=== PATIENT | female | born 1980 | race Caucasian/White ===

== ENCOUNTER 2020-09-08 16:54 | Emergency (ER) | payer BC, SELFPAY ==
[2020-09-08 17:22] VITALS: BP 141/92; PULSE 88; RESP 18; TEMP 36.9; O2SAT 99
--- NOTE | 2020-09-08 17:34 | ED.URI ---
HPI - URI/Sore Throat General Chief Complaint: Upper Respiratory Infection Stated Complaint: Shortness of breathe,cough,wheezing History of Present Illness HPI Narrative: This is a 39-year-old female presented to urgent care with complaints of uncontrolled productive coughing, wheezing, subjective fever and fatigue for approximately 1-1/2 weeks. Patient notes that she had her Covid vaccine Ovidio & Ovidio back in June. Patient has received Motrin at home for heart relieves. She described her secretions as a greenish color and approximately 1 month ago she was diagnosed and treated for bronchitis. She does continue to complain of shortness of breath and was given a albuterol inhaler she does use that when she is short of breath. The patient denies, CP, palpitation, extremity numbness, lightheadedness, dizziness, constipation, diarrhea, chills, or fever. MD elicited complaint: fever and cough Related Data Allergies Allergy/AdvReac Type Severity Reaction Status Date / Time codeine Allergy Intermediate Hives Verified 09/08/20 17:20 Review of Systems Review of Systems: Narrative: A 14 organ system Review of Systems was performed and pertinent positives included in the HPI, otherwise remaining ROS is negative. All systems reviewed & are unremarkable except as noted in HPI and below PMFSH Family History Family History (Updated 09/08/20 @ 17:38 by KIARA OwenP-C) Other Family history non-contributory Exam Narrative: Exam Narrative: GENERAL: This is a well-nourished, well-developed patient, in no apparent distress. HEAD: normocephalic, atraumatic. EYES: PERRL. Sclera clear/white. Vision is grossly intact. EARS: External ears normal, auditory canals clear and without drainage, TMs normal without perforation. Hearing grossly intact. NOSE: External nose normal with no obvious nasal discharge, nares without redness, no rhinorrhea. THROAT: Mucous membranes moist, posterior pharynx edema with the erythematous NECK: Neck supple, non-tender without lymphadenopathy, masses or thyromegaly. CARDIOVASCULAR: Regular rate and rhythm without murmurs, gallops, or rubs. RESPIRATORY: Diminished lung sounds throughout GASTROINTESTINAL: Abdomen soft, non-tender, nondistended. Bowel sounds are active. No hepato-splenomegaly, or palpable masses. No guarding. SKIN: warm, intact with no suspicious lesions or rash, good texture and turgor. NEURO: awake, alert, and oriented to person, place and time. There were no obvious focal neurologic abnormalities. Steady gait EXTREMITIES: Normal range of motion. No edema. No calf tenderness. Negative Homans sign bilaterally. BACK: Nontender without deformity or crepitance. No flank tenderness. Course Course Emergency Course: Patient will go home with amoxicillin 500 mg twice daily x7 days guaifenesin Tessalon Perles and prednisone Vital Signs Vital signs: Vital Signs Temperature 98.4 F 09/08/20 17:22 Pulse Rate 88 09/08/20 17:22 Respiratory Rate 18 09/08/20 17:22 Blood Pressure 141/92 H 09/08/20 17:22 Pulse Oximetry 99 09/08/20 17:22 Temperature 98.4 F 09/08/20 17:22 Pulse Rate 88 09/08/20 17:22 Respiratory Rate 18 09/08/20 17:22 Blood Pressure 141/92 H 09/08/20 17:22 Pulse Oximetry 99 09/08/20 17:22 MDM - URI/Sore Throat Differential Diagnosis Differential diagnosis: Likely upper respiratory infection, bronchitis and pharyngitis Discharge Plan Discharge Clinical Impression: Pharyngitis Qualifiers: Pharyngitis/tonsillitis etiology: unspecified etiology Qualified Code(s): J02.9 - Acute pharyngitis, unspecified Patient Disposition: Home, Self-Care Condition: Stable Instructions: Antibiotic Form, Pharyngitis (ED) Additional Instructions: Increase fluids especially juices and water [id number] cough and cold medicine of your choice for your symptoms Prescription cough medicine as directed--caution drowsiness and no driving or alcohol Cough t
== END 2020-09-08 18:00 | disposition home or self-care (01) ==
PROVIDERS: Emergency Provider Nurse Practitioner
DX: J02.9 Acute pharyngitis, unspecified (principal)
CPT/HCPCS: 99203; G0463

== ENCOUNTER 2020-12-27 18:33 | Emergency (ER) | payer BC, SELFPAY ==
[2020-12-27 18:40] VITALS: BP 142/97; PULSE 99; RESP 18; TEMP 36.6; O2SAT 100
--- NOTE | 2020-12-27 19:34 | ED.URI ---
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 Patient states she has a couple day history of right ear discomfort, preceded by 2-week history of nonproductive cough. No fever, loss of taste/smell, CP, wheezing, S OB. Symptoms are mild; triage vital signs are remarkable only for systolic BP in the low 140s Related Data Home Medications Medication Instructions Recorded Confirmed levonorgestrel [Mirena] 20 mcg INTRAUTERINE USEASDIRECTD 12/27/20 12/27/20 Allergies Allergy/AdvReac Type Severity Reaction Status Date / Time codeine Allergy Intermediate Hives Verified 12/27/20 18:42 Review of Systems Review of Systems: The patient has been informed that they may have pre-hypertension or Hypertension based on a BP reading in the department. I recommend that the patient call the primary care provider listed on their discharge instructions or a physician of their choice this week to arrange follow up for further evaluation of possible pre-hypertension or Hypertension General/Constitutional: No weight loss,fever Eyes: N0: Redness,discharge Ears/Nose/Throat: No: Epistaxis,ear discharge Respiratory: Denies: Hemoptysis Gastrointestinal: No Vomiting, Bleeding-rectal Skin: No Lumps, eruption Neurologic: No Focal Weakness,Sz Hematologic: Denies: Petechiae/Purpura Psychiatric: No: Suicida ideationl All Other Systems: Reviewed and Negative [facility] Family History Family History (Updated 09/08/20 @ 17:38 by SHAUN Owen) Other Family history non-contributory Social History Social History Gender identity (if verbalized by the patient): Female Sexual Orientation (if Verbalized by the Patient): Straight or Heterosexual Comments At time of signature, agree with nursing past medical, surgical, social and family history. There is no relevant family history pertinent to the presenting complaint Exam Narrative: General Appearance: Obese/well nourished EYE: PERRLA, Conjunctiva clear Ears: Auditory canal normal, TM normal Nose: Rhinorrhea, Mucousal erythema Mouth/Throat: MM moist, Uvula midline, Pharyngeal erythema Neck: Supple, No adenopathy Respiratory: No respiratory distress, distant BS are equal, Clear to auscultation Cardiovascular: RRR, No JVD Musculoskeletal: Non tender, Normal strength Skin: Warm, Dry Neurological: A&O x3, CN II-XII intact Psychiatric: Normal mood, Normal affect Course Vital Signs Vital signs: Vital Signs Temperature 97.9 F 12/27/20 18:40 Pulse Rate 99 12/27/20 18:40 Respiratory Rate 18 12/27/20 18:40 Blood Pressure 142/97 H 12/27/20 18:40 Pulse Oximetry 100 12/27/20 18:40 Temperature 97.9 F 12/27/20 18:40 Pulse Rate 99 12/27/20 18:40 Respiratory Rate 18 12/27/20 18:40 Blood Pressure 142/97 H 12/27/20 18:40 Pulse Oximetry 100 12/27/20 18:40 MDM - URI/Sore Throat Lab Data Labs: Lab Results 12/27/20 Range/Units 19:06 POC SARS CoV-2 Ag Negative (Negative) Strep Screen Presumptive Negative *(Reference Range: Negative)* Discharge Plan Discharge Clinical Impression: Cough Otitis media Qualifiers: Otitis media type: unspecified Chronicity: acute Qualified Code(s): H66.90 - Otitis media, unspecified, unspecified ear Patient Disposition: Home, Self-Care Condition: Stable Instructions: Ear Infection (ED), Acute Bronchitis (ED) Additional Instructions: You may continue your prior inhaler Prescriptions: New benzonatate 100 mg capsule 100 mg PO TID PRN (Reason: cough) Qty: 20 RF: 2 cefuroxime axetil 500 mg tablet 500 mg PO Q1
== END 2020-12-27 19:43 | disposition home or self-care (01) ==
PROVIDERS: Emergency Provider Emergency Medicine
DX: R05.9 Cough, unspecified (principal); H66.90 Otitis media, unspecified, unspecified ear; Z20.822 Contact with and (suspected) exposure to COVID-19
CPT/HCPCS: 87081; 87426; 87880; 99213; C9803; G0463

== ENCOUNTER 2022-02-04 11:49 | Emergency (ER) | payer BC, SELFPAY ==
[2022-02-04 12:11] VITALS: BP 152/102; PULSE 98; RESP 18; TEMP 36.1; O2SAT 100
--- NOTE | 2022-02-04 12:33 | ED.URI ---
HPI - URI/Sore Throat General Chief Complaint: Upper Respiratory Infection Stated Complaint: cough,congestion,wheezing Time Seen by Provider: 02/04/22 12:33 Source: patient and RN notes reviewed Mode of arrival: ambulatory Limitations: no limitations History of Present Illness HPI Narrative: 42-year-old female presenting for complaint of sore throat, sinus congestion and cough worsening over the last 4 days. She denies fever, body aches, shortness of breath, nausea, vomiting or diarrhea. She is taking DayQuil for symptoms. 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 MD elicited complaint: cough Related Data Home Medications Medication Instructions Recorded Confirmed levonorgestrel 20 mcg/24 hours (8 20 mcg intrauterine USEASDIRECTD 12/27/20 02/04/22 yrs) 52 mg intrauterine device (Mirena) Allergies Allergy/AdvReac Type Severity Reaction Status Date / Time codeine Allergy Intermediate Hives Verified 02/04/22 12:10 Review of Systems Review of Systems: ROS per HPI PEND[facility] S[facility] TO [facility] Family History Family History Other Family history non-contributory Social History Social History Gender identity (if verbalized by the patient): Female Sexual Orientation (if Verbalized by the Patient): Straight or Heterosexual Exam Narrative: GENERAL: Ill-appearing, nontoxic EYES: PERRLA, conjunctivae clear ENT: Mucous membranes moist. TMs pearly meyer with dull light reflex bilaterally; no tragal tenderness. Oropharynx erythematous without lesions or exudate CHEST: Clear to auscultation, breath sounds equal. wheezing a/w nonproductive cough HEART: Regular rate and rhythm. No murmur heard. SKIN: Warm, dry, no rash. NEURO: Alert and oriented x3. PSYCH: Normal mood and affect Course Course Emergency Course: Patient is aware of diagnosis, understands and agrees to treatment plan. Anticipatory guidance given. Patient agrees to follow-up as directed and is aware of reasons to seek care at the emergency department. Portions of this record may have been created with voice recognition software Level of Care: Express Care Visit Vital Signs Vital signs: Vital Signs Temperature 96.9 F L 02/04/22 12:11 Pulse Rate 98 02/04/22 12:11 Respiratory Rate 18 02/04/22 12:11 Blood Pressure 152/102 H 02/04/22 12:11 Pulse Oximetry 100 02/04/22 12:11 Oxygen Delivery Room Air 02/04/22 12:11 Temperature 96.9 F L 02/04/22 12:11 Pulse Rate 98 02/04/22 12:11 Respiratory Rate 18 02/04/22 12:11 Blood Pressure 152/102 H 02/04/22 12:11 Pulse Oximetry 100 02/04/22 12:11 Oxygen Delivery Room Air 02/04/22 12:11 reviewed MDM - URI/Sore Throat MDM Narrative Medical decision making narrative: Flu negative. Advised supportive measures and signs/symptoms to go to the ER. Pt is appropriate for outpt treatment and f/u. Differential Diagnosis Differential diagnosis: Likely upper respiratory infection, sinusitis, viral infection, bronchitis and influenza Lab Data Labs: Influenza A Screen Negative Reference Range: Negative Influenza B Screen Negative Reference Range: Negative Discharge Plan Discharge Clinical Impression: Upper respiratory infection Patient Disposition: Home, Self-Care Condition: Stable Instructions: Upper Respiratory Infection (ED) Additional Instructions: Recommend Flonase spray and Zyrtec (or Claritin/Almaz) over the counter Cough syrup may cause drowsiness; avoid driving or take it at night time. Tylenol 1000mg every 8 hours as needed for pain Symptomatic treatment includes: rest, fluids, and increase humidity of the air at home. Follow up with your primary care provider in 1 week. Go to the ER for
== END 2022-02-04 12:48 | disposition home or self-care (01) ==
PROVIDERS: Emergency Provider Nurse Practitioner Family
DX: J06.9 Acute upper respiratory infection, unspecified (principal)
CPT/HCPCS: 87804; 99213; G0463

== ENCOUNTER 2022-04-25 11:47 | Emergency (ER) | payer BC, SELFPAY ==
--- NOTE | 2022-04-25 11:55 | ED.GENADULT ---
HPI - General Adult General Chief complaint: Unspecified Stated complaint: Elevated Blood Pressure Time Seen by Provider: 04/25/22 11:55 Source: patient Mode of arrival: ambulatory Limitations: no limitations History of Present Illness HPI narrative: 42 yo F presents stating she was at her [employer] appt for a yearly exam and was told her blood pressure was elevated. Pt is asymptomatic. Was told BP 160s systolic. Does not have a PCP so came here to be seen. Deneis CP and SOB. All systems reviewed and negative except as noted above. Related Data Home Medications Medication Instructions Recorded Confirmed levonorgestrel 21 mcg/24 hours (8 20 mcg intrauterine USEASDIRECTD 12/27/20 02/04/22 yrs) 52 mg intrauterine device (Mirena) Allergies Allergy/AdvReac Type Severity Reaction Status Date / Time codeine Allergy Intermediate Hives Verified 02/04/22 12:10 Review of Systems Review of Systems: CONSTITUTIONAL: Denies fever, chills, or sweats. EYES: Denies visual changes, redness, or discharge. ENT: Denies rhinorrhea, congestion, sore throat, or otalgia. CARDIOVASCULAR: Denies chest pain, palpitations, or edema. RESPIRATORY: Denies cough or dyspnea. GASTROINTESTINAL: Denies abdominal pain, nausea, vomiting, or diarrhea. GENITOURINARY: Denies dysuria or hematuria. SKIN: Denies rash or itching. MUSCULOSKELETAL: Denies back pain, joint pain, or myalgia. NEUROLOGIC: Denies headache, numbness, or weakness. PSYCHIATRIC: Denies anxiety or depression. All other systems reviewed are negative, except as documented in HPI. PMFSH Family History Family History Other Family history non-contributory Social History Social History Gender identity (if verbalized by the patient): Female Sexual Orientation (if Verbalized by the Patient): Straight or Heterosexual Comments At time of signature, agree with nursing past medical, surgical, social and family history. There is no relevant family history pertinent to the presenting complaint. Exam Narrative: GENERAL: This is a well-nourished, well-developed patient, in no apparent distress. HEAD: normocephalic, atraumatic. EYES: PERRL. Sclera clear/white. Vision is grossly intact. EARS: External ears normal NOSE: External nose normal NECK: Neck supple, non-tender without lymphadenopathy, masses or thyromegaly. CARDIOVASCULAR: Regular rate and rhythm without murmurs, gallops, or rubs. RESPIRATORY: Clear to auscultation. Breath sounds equal bilaterally. No wheezes, rales, or rhonchi. SKIN: warm, Dry, intact with no suspicious lesions or rash, good texture and turgor. NEURO: awake, alert, and oriented to person, place and time. There were no obvious focal neurologic abnormalities. EXTREMITIES: No joint tenderness, effusion, or edema noted. Course Course Level of Care: Express Care Visit Vital Signs Vital signs: reviewed. BP manually checked by this [employer] and 144/92 Medical Decision Making MDM Narrative Medical decision making narrative: BP 144/92 today. asymptomatic. pt given [facility] number to establish primary care physician. Patient is aware of diagnosis, understands and agrees to treatment plan. Anticipatory guidance given. Patient agrees to follow-up as directed and is aware of reasons to seek care at the emergency department. Portions of this record may have been created with voice recognition software Discharge Plan Discharge Clinical Impression: Elevated blood pressure reading Patient Disposition: Home, Self-Care Condition: Stable Instructions: How to Take a Blood Pressure Reading (ED), Hypertension (ED) Additional Instructions: Your blood pressure today was 144/92. Follow up with a primary care physician at next available appointment. Call the [facility] number and discuss primary care options with them that will take y
[2022-04-25 11:58] VITALS: BP 143/97; PULSE 87; RESP 20; TEMP 36.5; O2SAT 100
== END 2022-04-25 12:13 | disposition home or self-care (01) ==
PROVIDERS: Emergency Provider Nurse Practitioner Family
DX: R03.0 Elevated blood-pressure reading, without diagnosis of hypertension (principal)
CPT/HCPCS: 99211; G0463

== ENCOUNTER 2022-10-13 08:27 | Emergency (ER) | payer MEDICAID, SELFPAY ==
--- NOTE | ~2022-10-13 | XR_ITS ---
XR chest 2V DATE: 10/13/2022 08:57 INDICATION: Productive cough, shortness of breath for 2 weeks TECHNIQUE: 2 views COMPARISON: None FINDINGS: Approximately 9 mm nodular density is suggested overlying the left upper lobe laterally. There is infiltrate and/or atelectasis in both lower lung zones. Cardiomegaly is suggested. No pleural effusion or pneumothorax is detected. IMPRESSION: Possible 9 mm left upper lobe pulmonary nodule Bilateral lower lung infiltrate and/atelectasis Suggestion of cardiomegaly Reviewed, dictated and finalized at location A.
--- NOTE | 2022-10-13 08:36 | ED.GENADULT ---
HPI - General Adult General Chief complaint: Upper Respiratory Infection Stated complaint: Wheezing,Headache Time Seen by Provider: 10/13/22 08:36 Source: patient Mode of arrival: ambulatory Limitations: no limitations History of Present Illness HPI narrative: 42-year-old female patient presents to the [facility] with complaints of cough, wheeze and some shortness of breath. Patient states she seen her primary provider about 2 weeks ago was given a Z-Pranav, albuterol inhaler and a steroid burst. Patient states she is still having wheezing, coughing and shortness of breath and feels like it might be getting worse. Patient states she has had a headache for the past 3 days. Denies fevers, body aches or chills. Denies any nausea, vomiting or diarrhea. Denies any history of asthma or bronchitis in the past. Related Data Home Medications Medication Instructions Recorded Confirmed levonorgestrel 21 mcg/24 hours (8 20 mcg intrauterine USEASDIRECTD 12/27/20 10/13/22 yrs) 52 mg intrauterine device (Mirena) albuterol sulfate 90 mcg/actuation 2 puff inhalation PRN PRN 10/13/22 10/13/22 aerosol inhaler Shortness Of Breath Or Wheezing Allergies Allergy/AdvReac Type Severity Reaction Status Date / Time codeine AdvReac Mild Hives Verified 10/13/22 08:28 Review of Systems Review of Systems: CONSTITUTIONAL: Denies fever, chills, or sweats. EYES: Denies visual changes, redness, or discharge. ENT: Denies rhinorrhea, congestion, sore throat, or otalgia. CARDIOVASCULAR: Denies chest pain, palpitations, or edema. RESPIRATORY: Positive cough , positive dyspnea. GASTROINTESTINAL: Denies abdominal pain, nausea, vomiting, or diarrhea. GENITOURINARY: Denies dysuria or hematuria. SKIN: Denies rash or itching. MUSCULOSKELETAL: Denies back pain, joint pain, or myalgia. NEUROLOGIC: positive headache, denies numbness, or weakness. PSYCHIATRIC: Denies anxiety or depression. [facility] Past Medical History Medical History (Updated 10/13/22 @ 09:34 by COSTA Mai) Hypertension Family History Family History Other Family history non-contributory Social History Social History Gender identity (if verbalized by the patient): Female Sexual Orientation (if Verbalized by the Patient): Straight or Heterosexual Comments At the time of my signature I agree with nursing past medical history, surgical, social, and family history. There is no relevant family history pertinent to the presenting complaint. Exam Narrative: GENERAL: Well-appearing, well-nourished, and in no acute distress. HEAD: Normocephalic, atraumatic. EYES: PERRLA and EOMI. ENT: Nares with erythema and edema noted bilaterally, no rhinorrhea or epistaxis. Mucous membranes moist. posterior pharynx no erythema, tonsillar enlargement, exudates or lesions present. NECK: Supple. No lymphadenopathy CHEST: Patient has expiratory wheezing on auscultation to all 4 lobes but more present to the bilateral upper lobes. Audible wheezing noted during exam. no tripoding noted. HEART: Regular rate and rhythm. No murmur heard. Normal peripheral pulses. ABDOMEN: Soft, nontender, nondistended, normal active bowel sounds. EXTREMITIES: Normal range of motion. No edema. SKIN: Warm, dry, no rash. NEURO: No focal deficits. Alert and oriented x3. Course Course Level of Care: Express Care Visit Reevaluation(s) Reevaluation #1: Re-evaluated patient and notified her that the x-ray does so show some bilateral infiltrates which could indicate some pneumonia. We will go ahead and treat her today with a prednisone taper as well as of a different type of antibiotics to hopefully treat the pneumonia. Discussed with patient that it the x-ray is also showing enlarged heart and a nodule will to the lung. Discussed with patient highly recommend she call her primary doctor joaquín
[2022-10-13 08:39] VITALS: BP 138/97; PULSE 88; RESP 18; TEMP 36.1; O2SAT 100
[2022-10-13] MEDS: IPRATROPIUM BR 0.02% INH SOLN 0.5 MG/2.5 ML VIAL INHALATION (09:04)
[2022-10-13] MEDS: ALBUTEROL SULFATE NEB 2.5 MG/3 ML INH INHALATION (09:05)
[2022-10-13 09:06] VITALS: PULSE 80; RESP 18; O2SAT 100
--- NOTE | 2022-10-13 09:14 | ECG_ITS ---
Measurements Intervals [facility] Rate: 76 P: 48 OK: 156 QRS: 4 QRSD: 110 T: -79 QT: 381 QTc: 430 Interpretive Statements SINUS RHYTHM MODERATE T-WAVE ABNORMALITY, CONSIDER LATERAL ISCHEMIA [-0.1+ mV T WAVE IN I/aVL/V5/V6] NO PREVIOUS ECG AVAILABLE FOR COMPARISON Electronically Signed On 10-13-2022 11:15:14 CDT by Aung Vega MD
[2022-10-13 09:31] VITALS: PULSE 88; RESP 20; O2SAT 100
== END 2022-10-13 09:37 | disposition home or self-care (01) ==
PROVIDERS: Emergency Provider Nurse Practitioner Family; PCP Family Medicine
DX: J18.9 Pneumonia, unspecified organism (principal); I51.7 Cardiomegaly; Z20.822 Contact with and (suspected) exposure to COVID-19; I10 Essential (primary) hypertension
CPT/HCPCS: 71046; 87426; 93005; 94640; 99213; C9803; G0463

== ENCOUNTER 2022-11-18 18:43 | Emergency (ER) | payer BC, SELFPAY ==
--- NOTE | ~2022-11-18 | XR_ITS ---
EXAMINATION: XR chest 2V Exam Date/Time: 11/18/2022 19:15 CDT HISTORY: COUGH X SEVERAL MONTHS SOB Comparison: 10/13/2022. RESULT: Lines, tubes, and devices: None. Lungs and pleura: Clear. Stable, likely calcified left upper lung nodule. Cardiomediastinal silhouette: Stable. Other: No acute osseous or upper abdominal finding. IMPRESSION: No acute cardiopulmonary process. Stable, likely benign calcified left upper lung nodule, recommend comparison to outside studies if av ailable. If none available, recommend outpatient low-dose noncontrast CT of the chest. Reviewed, dictated and finalized at location [facility]. IMPRESSION: No acute cardiopulmonary process. Stable, likely benign calcified left upper lung nodule, recommend comparison to outside studies if available. If none available, recommend outpatient low-dose noncontrast CT of the chest.
--- NOTE | 2022-11-18 18:49 | ED.URI ---
HPI - URI/Sore Throat General Chief Complaint: Upper Respiratory Infection Stated Complaint: cough,congestion Time Seen by Provider: 11/18/22 18:49 Source: patient Mode of arrival: ambulatory Limitations: no limitations History of Present Illness HPI Narrative: Leonila is a 42-year-old female patient presenting to the clinic today with complaints of cough, congestion, and shortness of breath x4-5 months. She reports she was seen in the clinic and had EKG and chest x-ray done on 10/13/22. She was dx with cardiomegly at that time and was hypertensive at that time. Was given prescription for azithromycin, albuterol inhaler, and steroid burst 2 weeks prior to being seen in the clinic on October 13. She since has seen a structures mechanic and a stubber. She is awaiting for her CT report on her lungs. States she is playing phone tag with the stubber. Has cough and congestion without any mucus production. States she is somewhat short of breath. SpO2 is 100% on room air. She is able to speak in full sentences. MD elicited complaint: sore throat and nasal congestion Related Data Home Medications Medication Instructions Recorded Confirmed levonorgestrel 21 mcg/24 hours (8 20 mcg intrauterine USEASDIRECTD 12/27/20 11/18/22 yrs) 52 mg intrauterine device (Mirena) albuterol sulfate 90 mcg/actuation 2 puff inhalation PRN PRN 10/13/22 11/18/22 aerosol inhaler Shortness Of Breath Or Wheezing amlodipine 5 mg tablet 5 mg PO DAILY 11/18/22 11/18/22 furosemide 20 mg tablet 20 mg PO DAILY 11/18/22 11/18/22 losartan 100 mg tablet 100 mg PO DAILY 11/18/22 11/18/22 Allergies Allergy/AdvReac Type Severity Reaction Status Date / Time codeine AdvReac Mild Hives Verified 11/18/22 18:49 Review of Systems Review of Systems: Pertinent positives per HPI. Patient denies any fever, chills, rash, headache, visual changes, dizziness, shortness of breath, chest pain, palpitations, nausea, vomiting, diarrhea, constipation, abdominal pain, or any urinary issues. PMFSH Past Medical History Medical History Hypertension Family History Family History Other Family history non-contributory Social History Social History Gender identity (if verbalized by the patient): Female Sexual Orientation (if Verbalized by the Patient): Straight or Heterosexual Comments At the time of my signature, I reviewed and agree with the nursing past medical, surgical, social, and family history. There is no relevant family history pertinent to the patient complaint. Exam Narrative: General: Well-developed, obese, in no apparent distress Head: Normocephalic, atraumatic Eyes: Pupils equally round and reactive to light bilaterally, EOM intact, sclera and conjunctive clear, no discharge, lids normal Ears: TMs intact and clear, ear canals clear, no drainage, grossly hearing normal. Nose: Nares patent, no discharge, no inflammation, no sinus tenderness. Mouth: Oral pharynx without lesions or masses, good dentition, MMM. Neck: Supple, trachea midline, no enlargement of anterior or posterior cervical nodes, no thyroid masses or goiter palpable. Cardio: Regular rate and rhythm, s1 and s2 normal, no murmur appreciated. Resp: Diminished breath sounds otherwise clear, no rhonchi, rales, wheezing or rubs Course Course Emergency Course: Portions of this record may have been created with voice recognition software. Level of Care: Express Care Visit Vital Signs Vital signs: Vital signs reviewed MDM - URI/Sore Throat MDM Narrative Medical decision making narrative: At the time of visit patient is resting comfortably on the exam table. X-rays negative for any sign of acute cardiopulmonary process. Hand-held neb treatment was given with no change in respiratory status. Krystal
[2022-11-18 18:51] VITALS: BP 135/88; PULSE 98; RESP 18; TEMP 36.5; O2SAT 100
[2022-11-18 18:55] VITALS: PULSE 98; RESP 20; O2SAT 100
[2022-11-18] MEDS: ALBUTEROL SULFATE NEB 2.5 MG/3 ML INH INHALATION (19:15)
[2022-11-18] MEDS: IPRATROPIUM BR 0.02% INH SOLN 0.5 MG/2.5 ML VIAL INHALATION (19:16)
== END 2022-11-18 19:50 | disposition home or self-care (01) ==
PROVIDERS: Emergency Provider Nurse Practitioner Family; PCP Family Medicine
DX: R05.1 Acute cough (principal); I10 Essential (primary) hypertension; Z79.899 Other long term (current) drug therapy
CPT/HCPCS: 71046; 94640; 99213; G0463

== ENCOUNTER 2022-12-25 17:28 | Emergency (ER) | payer BC, SELFPAY ==
[2022-12-25 17:42] VITALS: BP 150/85; PULSE 95; RESP 18; TEMP 36.8; O2SAT 98
--- NOTE | 2022-12-25 17:57 | ED.URI ---
HPI - URI/Sore Throat General Chief Complaint: Upper Respiratory Infection Stated Complaint: sorethroat,cough Time Seen by Provider: 12/25/22 17:58 Source: patient, RN notes reviewed and old records reviewed Mode of arrival: ambulatory Limitations: no limitations History of Present Illness HPI Narrative: 42-year-old female presents to the [facility] with complaints of worsening sore throat, cough and wheezing as well as fatigue for 5 days. Patient states that she felt fevers today, did not take her temperature. States she has had the symptoms intermittently for the last several months. Has been on prednisone either prescribed at urgent care or by primary care provider on 81, 827 and again 11 28. A Z-Pranav was prescribed on 09/30, and . Had a similar complaint when she was last seen here on November 18, since seen here for similar on October 13. States that she did follow-up with her primary care provider in regards to the lung nodule months ago. 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 Patient in no acute distress, no wheezing noted on exam Offered a chest x-ray, strep test, patient declined Discussed risks of prescribing another steroid to include diabetes, kidney injury. Discussed antibiotics are not indicated at this time. Patient states ?I know that a ready. ? Patient reports the lung nodule that was seen on x-ray was ?nothing. ? according to her primary care provider and grain i farmworker. Onset (ago): month(s) Related Data Home Medications Medication Instructions Recorded Confirmed levonorgestrel 21 mcg/24 hours (8 20 mcg intrauterine USEASDIRECTD 12/27/20 12/25/22 yrs) 52 mg intrauterine device (Mirena) albuterol sulfate 90 mcg/actuation 2 puff inhalation PRN PRN 10/13/22 12/25/22 aerosol inhaler Shortness Of Breath Or Wheezing amlodipine 5 mg tablet 5 mg PO DAILY 11/18/22 12/25/22 furosemide 20 mg tablet 20 mg PO DAILY 11/18/22 12/25/22 losartan 100 mg tablet 100 mg PO DAILY 11/18/22 12/25/22 tiotropium bromide 1.25 1.25 mcg inhalation DIRECTED 12/25/22 12/25/22 mcg/actuation mist for inhalation (Spiriva Respimat) Allergies Allergy/AdvReac Type Severity Reaction Status Date / Time codeine AdvReac Mild Hives Verified 11/18/22 18:49 Review of Systems Review of Systems: All systems reviewed & are unremarkable except as noted in HPI and below Constitutional: Constitutional: Reports as per HPI, Reports no additional constitutional complaints and Reports fatigue Eyes: Eyes: Reports no additional eye complaints ENT: Reports as per HPI and Reports sore throat Cardiovascular: Cardiovascular: Reports no additional cardiovascular complaints, Denies chest pain and Denies dyspnea Respiratory: Respiratory: Denies chest congestion, Reports cough, Denies dyspnea and Reports wheezing Gastrointestinal: Gastrointestinal: Reports no additional gastrointestinal complaints, Denies abdominal pain, Denies nausea and Denies vomiting Musculoskeletal: Musculoskeletal: Reports no additional musculoskeletal complaints Integumentary/Breasts: Skin/Breast: Reports system reviewed and no additional complaints, except as docu Neurologic: Reports system reviewed and no additional complaints, except as documented Psychiatric: Psychiatric: Reports no additional psychiatric complaints Allergic/Immunologic: Allergic/Immunologic: Reports no additional allergic/immunologic complaints [facility], [facility] Past Medical History Medical History Hypertension Family History Family History Other Family history non-contributory Social History Social History Gender identity (if verba
== END 2022-12-25 18:16 | disposition home or self-care (01) ==
PROVIDERS: Emergency Provider Nurse Practitioner; PCP Family Medicine
DX: R05.1 Acute cough (principal); I10 Essential (primary) hypertension
CPT/HCPCS: 99211; G0463

== ENCOUNTER 2023-10-22 14:12 | Emergency (ER) | payer BC, SELFPAY ==
[2023-10-22 14:23] VITALS: BP 149/86; PULSE 85; RESP 16; TEMP 36.3; O2SAT 97
--- NOTE | 2023-10-22 14:44 | ED.NAVMDI ---
HPI - Nausea/Vomiting/Diarrhea General Chief complaint: Nausea/Vomiting/Diarrhea Stated complaint: nausea, vomiting, dizziness Time Seen by Provider: 10/22/23 14:44 Source: patient Mode of arrival: ambulatory Limitations: no limitations History of Present Illness HPI Narrative: 43-year-old female presents with complaint of dizziness, nausea, fatigue starting around 10:00 a.m. today. Patient states she was fine when she woke up this morning. Has not had breakfast or lunch. Reports decreased appetite. No URI symptoms. Denies chest pain and shortness of breath. Dizziness is worse when standing. Denies headache. Was driving home when symptoms started. Stopped over on side of road and had her come and pick her up. Ambulatory with steady gait. patient's blood pressure elevated today. Patient not compliant with her medications. All systems reviewed and negative except as noted above. Related Data Home Medications Medication Instructions Recorded Confirmed levonorgestrel 21 mcg/24 hr (up to 20 mcg intrauterine USEASDIRECTD 12/27/20 12/25/22 8 years) 52 mg intrauterine device (Mirena) albuterol sulfate 90 mcg/actuation 2 puff inhalation PRN Shortness Of 10/13/22 12/25/22 aerosol inhaler Breath Or Wheezing Allergies Allergy/AdvReac Type Severity Reaction Status Date / Time codeine Allergy Mild Hives Verified 10/22/23 14:29 Review of Systems Review of Systems: CONSTITUTIONAL: Denies fever, chills, or sweats. Reports fatigue. EYES: Denies visual changes, redness, or discharge. ENT: Denies rhinorrhea, congestion, sore throat, or otalgia. CARDIOVASCULAR: Denies chest pain, palpitations, or edema. RESPIRATORY: Denies cough or dyspnea. GASTROINTESTINAL: Denies abdominal pain . Reports nausea, vomiting. Denies diarrhea. GENITOURINARY: Denies dysuria or hematuria. SKIN: Denies rash or itching. MUSCULOSKELETAL: Denies back pain, joint pain, or myalgia. NEUROLOGIC: Denies headache, numbness, or weakness. Reports dizziness. PSYCHIATRIC: Denies anxiety or depression. All other systems reviewed are negative, except as documented in HPI. [facility] Past Medical History Medical History Hypertension Family History Family History Other Family history non-contributory Social History Social History Gender identity (if verbalized by the patient): Female Sexual Orientation (if Verbalized by the Patient): Straight or Heterosexual Comments At time of signature, agree with nursing past medical, surgical, social and family history. There is no relevant family history pertinent to the presenting complaint. Exam Narrative: GENERAL: This is a well-nourished, well-developed patient, in no apparent distress. HEAD: normocephalic, atraumatic. EYES: PERRL. Sclera clear/white. Vision is grossly intact. Extraocular motions intact EARS: External ears normal, auditory canals clear and without drainage, TMs normal without perforation. Hearing grossly intact. NOSE: External nose normal with no obvious nasal discharge, nares without redness, no rhinorrhea. THROAT: Mucous membranes moist, posterior pharynx clear. NECK: Neck supple, non-tender without lymphadenopathy, masses or thyromegaly. CARDIOVASCULAR: Regular rate and rhythm without murmurs, gallops, or rubs. RESPIRATORY: Clear to auscultation. Breath sounds equal bilaterally. No wheezes, rales, or rhonchi. SKIN: warm, Dry, intact with no suspicious lesions or rash, good texture and turgor. NEURO: awake, alert, and oriented to person, place and time. There were no obvious focal neurologic abnormalities. EXTREMITIES: No joint tenderness, effusion, or edema noted. No calf tenderness. Negative Homans sign bilaterally. BACK: Nontender without deformity. No CVA tenderness. Course Course Level of C
--- NOTE | 2023-10-22 14:52 | ECG_ITS ---
Test Date: 2023-10-22 15:03:09 Measurements Intervals [place] Rate: 78 P: 48 MI: 159 QRS: -5 QRSD: 113 T: -40 QT: 394 QTc: 450 Interpretive Statements SINUS RHYTHM POSSIBLE LEFT ATRIAL ENLARGEMENT INTRAVENTRICULAR CONDUCTION DELAY BORDERLINE ST-T WAVE ABNORMALITY- ANTEROLAT/INF LEADS BASELINE ARTIFACT- I, II, III, AVR, AVL, AVF BORDERLINE ECG No previous ECG available for comparison Electronically Signed On 10-22-2023 19:58:05 CDT by Harry Pope D.O.
[2023-10-22 15:01] LABS: EDINFLUASCREEN Positive; EDINFLUBSCREEN Negative
== END 2023-10-22 15:12 | disposition home or self-care (01) ==
PROVIDERS: Emergency Provider Nurse Practitioner Family
DX: J10.1 Influenza due to other identified influenza virus with other respiratory manifestations (principal); Z20.822 Contact with and (suspected) exposure to COVID-19; I10 Essential (primary) hypertension
CPT/HCPCS: 87426; 87804; 93005; 99213; G0463